=== PATIENT | female | born 1950 | race Caucasian/White ===

== ENCOUNTER → 2020-08-23 12:07 | Outpatient (CLI) | payer SELFPAY | PROVIDERS: Visit Provider Nurse Practitioner Family | DX: Z53.9 Procedure and treatment not carried out, unspecified reason (principal) | CPT/HCPCS: 80053; 85025; 85379; 85610; 85652; 86140; 87635; U0003 ==

== ENCOUNTER 2020-08-23 14:25 | Emergency (ER) | payer MEDICARE, OTHER, SELFPAY ==
[2020-08-23 12:37] LABS: International Normalized Ratio 1.2; Prothrombin Time (Protime)PT. 15.2 SECONDS (11.7-14.9)
[2020-08-23 12:38] LABS: Absolute Lymphocyte Count 2.57 X10^3/uL (0.83-4.51); Absolute Neutrophil Count 6.1 X10^3/uL (2.0-7.7); Basophil# 0.02 X10^3/uL; Basophil% 0.2 % (0-1); Eosinophil# 0.05 X10^3/uL; Eosinophils% 0.5 % (0-5); Erythrocyte Sedimentation Rate 15 mm/hr (0-30); Hematocrit 36.4 % (37-47); Hemoglobin 11.8 g/dL (12.0-15.0); Lymphocyte # 2.57 X10^3/ul (4.0); Lymphocyte % 27.6 % (19-41); Mean Corp Hgb Conc 32.4 g/dL (32-36); Mean Corpuscular Hgb 28.9 pg (27.0-32.0); Mean Corpuscular Volume 89.2 fL (81-99); Mean Platelet Vol. 12.3 fl (6.2-12.0); Monocyte# 0.53 X10^3/uL; Monocyte% 5.7 % (0-10); NRBC Flagged by Analyzer 0 % (0-5); Neutrophil # 6.08 X10^3/uL (2.7-7.7); Neutrophil % 65.2 % (47-70); Platelet Count 182 K/mm3 (150-450); RBC Distribution Width CV 12.8 % (11.6-14.6); RBC Distribution Width SD 41.8 fl (35.1-43.9); Red Blood Count 4.08 M/mm3 (4.2-5.4); White Blood Count 9.3 K/mm3 (4.4-11.0)
[2020-08-23 12:51] LABS: AST(SGOT) 14 U/L (15-37); Alanine Aminotransfer ALT/SGPT 25 U/L (13-56); Alkaline Phosphatase 96 U/L (45-117); Anion Gap 6 (5-15); BUN 18 mg/dL (7-18); BUN/Creat Ratio 25.5 RATIO (10-20); CRP 6.13 mg/L (0.0-3.0); Calcium,Total 8.5 mg/dL (8.5-10.1); Chloride 103 mmol/L (98-107); Creatinine, Serum 0.71 mg/dL (0.55-1.02); EST Glomerular Filtration Rate 87 mL/min (>60); Est Glom Filt Rate - Afr Amer 106 mL/min (>60); Globulin 2.9 g/dL (2.2-4.2); Glucose 279 mg/dL (74-106); Potassium 3.4 mmol/L (3.5-5.1); Protein, Total 5.9 g/dL (6.4-8.2); Sodium Level 139 mmol/L (136-145)
[2020-08-23 12:52] LABS: D-Dimer Quantitative (DVT/PE) 0.59 FEU/ug/m (0.27-0.49)
[2020-08-23 14:26] VITALS: BP 144/67; PULSE 81; RESP 16; TEMP 37; O2SAT 98; BMI 34.2
--- NOTE | 2020-08-23 14:29 | EKG12_ITS ---
Test Reason : CP Blood Pressure : / mmHG Vent. Rate : 079 BPM Atrial Rate : 079 BPM P-R Int : 202 ms QRS Dur : 088 ms QT Int : 390 ms P-R-T Axes : 040 -18 026 degrees QTc Int : 447 ms Normal sinus rhythm Normal ECG Confirmed by RACHEL PATEL, FAY ([id number]), electronic news gathering editor SARANYA MALONE ([id number]) on 08/26/2020 8:54:01 AM Referred By: AGATHA Confirmed By:FAY RAMOS MD
--- NOTE | 2020-08-23 14:57 | CT_ITS ---
STUDY: CTA CHEST REASON FOR EXAM: Female, 70 years old. RIGHT SIDE CHEST PAIN ELEVATED D-DIMER RADIATION DOSAGE (If Supplied By Facility): CTDIvol = ( 9.86 ) mGy, DLP = ( 314.57 ) mGycm TECHNIQUE: The examination was performed with the intravenous administration of IV 100mL Isovue-370. Post-processing of the angiographic images was performed, with multiplanar reformation and 3D reconstruction. Individualized dose optimization techniques were used for this CT. COMPARISON: None. FINDINGS: Normal enhancement of the main pulmonary artery and right and left pulmonary arteries. Normal enhancement of the bilateral peripheral pulmonary arteries. There is no demonstrated pulmonary embolism. Normal thoracic aorta and visualized great vessels. There is no demonstrated aortic dissection. Normal heart and pericardium. Normal mediastinum. Normal hilar regions. Normal visualized trachea and bronchi. The lungs are well expanded. Normal pulmonary parenchyma. Normal pleura. Normal chest wall structures. There are degenerative changes of thoracic spine. Normal visualized upper abdomen. CT/CTA Chest W/WO Contrast IMPRESSION: Normal CTA chest examination, without a demonstrated pulmonary embolism or arterial dissection. No acute chest disease. Electronically Signed: Amado Puentes MD at 16:31 EST , Service support ,
--- NOTE | 2020-08-23 15:05 | RAD_ITS ---
STUDY: X-RAY CHEST REASON FOR EXAM: Female, 70 years old. patient with right chest pain and elevated d-dimer. sent in by pcp. concern for pe. TECHNIQUE: Single AP portable view of the chest. COMPARISON: None. FINDINGS: The lungs are clear and expanded. There is no demonstrated pleural abnormality. Normal size heart. Normal mediastinum and judith. Normal visualized pulmonary arteries. Normal visualized aortic arch and descending thoracic aorta. There are diffuse degenerative changes of the visualized thoracic spine. Normal visualized ribs, clavicles, and shoulders. There is no demonstrated abnormality of the visualized soft tissue structures of the upper abdomen. RAD/Chest 1 View (Portable) IMPRESSION: No definite acute or significant abnormality seen. Electronically Signed: Amado Puentes MD at 16:27 EST , Service support ,
--- NOTE | 2020-08-23 15:50 | ED.VISSUMM ---
- ER Visit Summary Date of Service: 08/23/20 Chief Complaint: Chest pain History of Present Illness: The patient is a 70 F who is visiting from [place]. She reports she has chest pain that began quite some time ago, but worsened on [place]. Is an intermittent pain lasts a few minutes of time. She describes it as sharp. Severe at worst mild currently. It is worsened by breathing or sitting up. States that even the active putting on her pants was painful. She relieved by rest. She denies any associated nausea, vomiting, diaphoresis, shortness of breath. She reports it feels like a pulled muscle. Patient reports she was seen by a visiting nurse practitioner today and had a D-dimer drawn which was elevated. She was sent to the emergency department for a CTA of her chest. She is on Eliquis for PE. Physical Examination: Vitals: Stable. Afebrile. General: Well-nourished and well-developed. Head: Normocephalic atraumatic. Neck: Supple, no lymphadenopathy. No JVD. Nontender. Cardiovascular: Regular rate and rhythm. No murmurs. Respiratory: No respiratory distress. Clear to auscultation bilaterally. Abdominal: Soft, nontender, nondistended, normal bowel sounds. No guarding, rebound, or peritoneal signs. Back: Nontender. Extremities: Nontender, no edema. Skin: Normal color, no rash. Neurologic: Alert and oriented ?3. Cranial nerves II through XII are intact. Normal strength and sensation. Psych: Normal affect. Test Results: EKG is sinus at 79 with no acute changes. There is no old EKG for comparison. I annalise a troponin which was negative. The nurse practitioner had ordered a CBC which shows an H&H of 11.8 and 36.4. BMP that shows potassium 3.4 glucose 279. LFTs showed a total protein of 5.9 albumin nine 3.0, AST 14. Her D-dimer is 0.59. Her CRP is 6.13. She has a COVID-19 test pending. Clinical Impression(s) from Imaging Studies Chest CTA 08/23/20 14:57 IMPRESSION: Normal CTA chest examination, without a demonstrated pulmonary embolism or arterial dissection. No acute chest disease. Electronically Signed: Amado Puentes MD at 16:31 EST , Service support , Chest X-Ray 08/23/20 15:05 IMPRESSION: No definite acute or significant abnormality seen. Electronically Signed: Amado Puentes MD at 16:27 EST , Service support , Emergency Department Course and Treatment: I had a prolonged discussion with the patient that her age corrected D-dimer is negative. She is still quite concerned that she may have a PE. Because of that a CTA of the chest was obtained. Patient reports she has a Covid test pending and has not been exposed. She refused a Covid rapid antigen. Treatment Plan: Patient will be discharged instructions to continue her fentanyl and follow-up with her primary care physician in 1 week if not improving. Return to the emergency department for any worsening symptoms. Disposition: To home in improved and stable condition. Impression: 1. Atypical chest pain. This note was generated with [employer] dictation software. It may contain incorrect words, spelling, and punctuation that were not noted in review of the chart prior to signing ED Disposition - Plan for ED Patient: Instructions: ED Chest Pain, Uncertain Cause Referrals: ELZBIETA GUSMAN [Other] - 1 Week if not improving
[2020-08-23 16:49] VITALS: BP 129/76; PULSE 78; RESP 16; O2SAT 97
== END 2020-08-23 17:02 | disposition home or self-care (01) ==
LOC: ED 14:57
PROVIDERS: Nurse Practitioner Family; Emergency Provider Emergency Medicine
DX: R07.89 Other chest pain (principal); Z79.01 Long term (current) use of anticoagulants; I26.99 Other pulmonary embolism without acute cor pulmonale
CPT/HCPCS: 71045; 71275; 80053; 84484; 85025; 85379; 85610; 85652; 86140; 87635; 93005; 99285; Q9967; U0005; A4216; U0003